=== PATIENT | female | born 1940 | race Caucasian/White ===

== ENCOUNTER 2018-05-27 07:24 | Inpatient (IN) | payer OTHER ==
[~2018-05-27] VITALS: Ht 160 cm; Wt 52.6 kg
[2018-05-27] VITALS (10 sets, daily range): BP systolic 109–176; BP diastolic 49–81
[~2018-05-27 07:24] MED LIST: A & D15 GM TP; ADULT LOW STREN81 M3 PO; ANTIVERT25 MG PO; CARAFATE1 GM PO; COZAAR50 MG PO; DILAUDID2 MG PO; LISINOPRIL5 MG PO; LOSARTAN POTASS25 MG PO; LOW DOSE ASPIRI81 M1 PO; METOPROLOL SUCC25 MG PO; NORVASC10 MG PO; Norvasc PO; PREVACID15 MG PO; PREVACID30 MG PO; ST. JOSEPH ASPI81 M1 PO; TOPROL XL50 MG PO; TOPROL XL6.25 MG PO; TYLENOL REGULA325 MG PO
[2018-05-27 08:05] LABS: HEMATOCRIT 40.1 % (36.0-46.0); HEMOGLOBIN 13.5 G/DL (11.9-15.5); MCH 32.5 PG (29.0-34.0); MCHC 33.7 G/DL (30.0-36.0); MCV 96.6 FL (83-99); PLATELET COUNT 276 K/uL (156-360); RBC DIS.WIDTH-CV 12.8 % (11.8-14.6); RBC DIS.WIDTH-SD 45.9 % (39-53); RED BLOOD COUNT 4.15 M/uL (3.80-5.20); WHITE BLOOD COUNT 7.4 K/uL (4.1-10.2)
[2018-05-27 09:05] LABS: CHLORIDE 108 MEQ/L (99-109); POTASSIUM 3.8 MEQ/L (3.7-5.4); SODIUM 143 MEQ/L (136-147)
[2018-05-27 09:08] LABS: TROP-I INTERPRETATION INDETERMINATE; TROPONIN-I 0.58 ng/mL (0.0-0.30)
[2018-05-27 09:11] LABS: CREATININE 0.8 MG/DL (0.6-1.3); GFR ESTIMATE (CALCULATED) > 59 mL/min/; GLUCOSE 101 mg/dL (70-99); UREA NITROGEN (BUN) 25 mg/dL (9-23)
[2018-05-27 09:53] LABS: INTER. NORMALIZED RATIO 0.9
[2018-05-27 09:55] LABS: PTT 29.7 SEC (25-37)
[2018-05-27] MEDS ORDERED: TYLENOL EXTRA500 MG PO (10:00)
[2018-05-27] MEDS ORDERED: NITROGLYCERIN0.4 MG SL (10:57)
[2018-05-27 17:33] LABS: TROP-I INTERPRETATION POSITIVE
[2018-05-27 17:36] LABS: TROPONIN-I 1.41 ng/mL (0.0-0.30)
[2018-05-28] VITALS (22 sets, daily range): BP systolic 80–168; BP diastolic 49–107
[2018-05-28 02:10] LABS: HEMATOCRIT 35.4 % (36.0-46.0); HEMOGLOBIN 12.1 G/DL (11.9-15.5); MCH 32.6 PG (29.0-34.0); MCHC 34.2 G/DL (30.0-36.0); MCV 95.4 FL (83-99); PLATELET COUNT 233 K/uL (156-360); RBC DIS.WIDTH-CV 12.8 % (11.8-14.6); RBC DIS.WIDTH-SD 45.1 % (39-53); RED BLOOD COUNT 3.71 M/uL (3.80-5.20); WHITE BLOOD COUNT 9.5 K/uL (4.1-10.2)
[2018-05-28 02:45] LABS: CHLORIDE 111 mEq/L (99-109); POTASSIUM 3.6 mEq/L (3.7-5.4); SODIUM 143 mEq/L (136-147); TROP-I INTERPRETATION POSITIVE
[2018-05-28 02:46] LABS: GLUCOSE 116 mg/dL (70-99)
[2018-05-28 02:50] LABS: CREATININE 0.7 mg/dL (0.6-1.3); GFR ESTIMATE (CALCULATED) > 59 mL/min/
[2018-05-28 02:51] LABS: UREA NITROGEN (BUN) 18 mg/dL (9-23)
[2018-05-28 02:53] LABS: TROPONIN-I 2.38 ng/mL (0.0-0.30)
[2018-05-28 08:56] LABS: TROP-I INTERPRETATION POSITIVE
[2018-05-28 09:11] LABS: TROPONIN-I 2.08 ng/mL (0.0-0.30)
[2018-05-28 12:21] LABS: CHLORIDE 110 mEq/L (99-109); POTASSIUM 4.1 mEq/L (3.7-5.4); SODIUM 144 mEq/L (136-147)
[2018-05-28 12:22] LABS: GLUCOSE 98 mg/dL (70-99)
[2018-05-28 12:26] LABS: CREATININE 0.8 mg/dL (0.6-1.3); GFR ESTIMATE (CALCULATED) > 59 mL/min/
[2018-05-28 12:27] LABS: UREA NITROGEN (BUN) 16 mg/dL (9-23)
[2018-05-28 17:32] LABS: CHLORIDE 109 MEQ/L (99-109); CREATININE 0.8 MG/DL (0.6-1.3); GFR ESTIMATE (CALCULATED) > 59 mL/min/; GLUCOSE 105 mg/dL (70-99); POTASSIUM 4.3 MEQ/L (3.7-5.4); SODIUM 142 MEQ/L (136-147); UREA NITROGEN (BUN) 15 mg/dL (9-23)
[2018-05-29] VITALS (12 sets, daily range): BP systolic 92–164; BP diastolic 51–87
[2018-05-29 06:56] LABS: HEMATOCRIT 35.6 % (36.0-46.0); HEMOGLOBIN 12.2 G/DL (11.9-15.5); MCH 33.2 PG (29.0-34.0); MCHC 34.3 G/DL (30.0-36.0); RBC DIS.WIDTH-CV 13.1 % (11.8-14.6); RBC DIS.WIDTH-SD 46.6 % (39-53); RED BLOOD COUNT 3.67 M/uL (3.80-5.20); WHITE BLOOD COUNT 6.5 K/uL (4.1-10.2)
[2018-05-29 07:15] LABS: CHLORIDE 108 MEQ/L (99-109); CREATININE 0.8 MG/DL (0.6-1.3); GFR ESTIMATE (CALCULATED) > 59 mL/min/; GLUCOSE 96 mg/dL (70-99); POTASSIUM 4.1 MEQ/L (3.7-5.4); SODIUM 142 MEQ/L (136-147); UREA NITROGEN (BUN) 12 mg/dL (9-23)
[2018-05-29 07:30] LABS: PLAT.SUFFICIENCY ADEQUATE; PLATELET COUNT 234 K/uL (156-360)
== END 2018-05-29 13:19 | disposition short-term general hospital (02) | DRG 281 ==
LOC: EME 07:24 → CATH 11:03 → 2SOUTH 12:00 → 4WEST 12:00 → ENRESERV 12:38 → 4WEST 12:45 → ENRESERV 12:52 → 2SOUTH 13:11 → 4WEST 05-29 13:19
PROVIDERS: Emergency Medicine; Internal Medicine Pulmonary Disease
DX: I21.4 Non-ST elevation (NSTEMI) myocardial infarction (principal); I25.810 Atherosclerosis of coronary artery bypass graft(s) without angina pectoris; I70.8 Atherosclerosis of other arteries; E78.5 Hyperlipidemia, unspecified; M79.7 Fibromyalgia; F41.9 Anxiety disorder, unspecified; I10 Essential (primary) hypertension; F32.9 Major depressive disorder, single episode, unspecified; E87.6 Hypokalemia; R55 Syncope and collapse; K21.9 Gastro-esophageal reflux disease without esophagitis; Z95.5 Presence of coronary angioplasty implant and graft; Z90.710 Acquired absence of both cervix and uterus; I25.2 Old myocardial infarction; Z88.6 Allergy status to analgesic agent; Z95.1 Presence of aortocoronary bypass graft; Z85.820 Personal history of malignant melanoma of skin
CPT/HCPCS: 71275; 80048; 80048 91; 81003; 84484; 85027; 85347; 85610; 85730; 87641; 93005; 99281; 99285; C1769; C1887; C1894; J0461; J1644; J2250; J2270; J2405; J3010; J3480; J7040

== ENCOUNTER 2018-06-04 02:04 | Observation (INO) | payer OTHER ==
[~2018-06-04] VITALS: Ht 160 cm; Wt 48.5 kg
[~2018-06-04 02:04] MED LIST changes: +NITROGLYCERIN0.4 MG SL; +TYLENOL EXTRA500 MG PO
[2018-06-04 02:49] LABS: TROP-I INTERPRETATION INDETERMINATE; TROPONIN-I 0.37 ng/mL (0.0-0.30)
[2018-06-04 02:50] LABS: CHLORIDE 105 MEQ/L (99-109); GFR ESTIMATE (CALCULATED) 57 mL/min/; GLUCOSE 110 mg/dL (70-99); POTASSIUM 3.7 MEQ/L (3.7-5.4); SODIUM 140 MEQ/L (136-147)
[2018-06-04 02:53] LABS: UREA NITROGEN (BUN) 25 mg/dL (9-23)
[2018-06-04 03:32] LABS: HEMATOCRIT 35.1 % (36.0-46.0); MCH 33.1 PG (29.0-34.0); MCHC 34.2 G/DL (30.0-36.0); MCV 96.7 FL (83-99); RBC DIS.WIDTH-CV 12.8 % (11.8-14.6); RBC DIS.WIDTH-SD 45.7 % (39-53); RED BLOOD COUNT 3.63 M/uL (3.80-5.20); WHITE BLOOD COUNT 9.7 K/uL (4.1-10.2)
[2018-06-04 04:25] LABS: AMPHETAMINE NEGATIVE (500 ng/mL); BARBITURATES NEGATIVE (200 ng/mL); BENZODIAZEPINES NEGATIVE (150 ng/mL); BUPRENORPHINE NEGATIVE (10 ng/mL); COCAINE NEGATIVE (150 ng/mL); METHADONE NEGATIVE (200 ng/mL); METHAMPHETAMINE NEGATIVE (500 ng/mL); OPIATES (MORPHINE) PRESUMPTIVE POSITIVE (100 ng/mL); OXYCODONE NEGATIVE (100 ng/mL); PHENCYCLIDINE NEGATIVE (25 ng/mL); PROPOXYPHENE NEGATIVE (300 ng/mL); THC CANNABINOIDS NEGATIVE (50 ng/mL); TRICYCLIC ANTIDEPRESSANTS NEGATIVE (300 ng/mL)
[2018-06-04 04:48] LABS: APPEARANCE CLEAR ((CLEAR)); BILIRUBIN NEGATIVE; BLOOD NEGATIVE; COLOR STRAW ((YELLOW)); GLUCOSE (STRIP) NEGATIVE; KETONES NEGATIVE; LEUKOCYTES NEGATIVE; NITRITE NEGATIVE; PROTEIN (STRIP) NEGATIVE; SPECIFIC GRAVITY 1.011 (1.000-1.030); UCUL ADDED? NO; UROBILINOGEN 0.2 MG/DL (0.2-1.0)
[2018-06-04 06:15] VITALS: BP 191/84
[2018-06-04 06:17] LABS: PLATELET COUNT 284 K/uL (156-360)
[2018-06-04 07:33] LABS: TROP-I INTERPRETATION NEGATIVE; TROPONIN-I 0.28 ng/mL (0.0-0.30)
[2018-06-04 07:51] VITALS: BP 160/75
[2018-06-04] MEDS ORDERED: NITROSTAT0.4 MG SL (10:59)
[2018-06-04] MEDS ORDERED: BRILINTA90 MG PO (10:59)
[2018-06-04 12:08] VITALS: BP 133/83
[2018-06-04 12:35] LABS: TROP-I INTERPRETATION NEGATIVE; TROPONIN-I 0.19 ng/mL (0.0-0.30)
[2018-06-04] MEDS ORDERED: ASPIRIN81 M2 PO (14:33)
== END 2018-06-04 15:25 | disposition home or self-care (01) ==
LOC: EME 02:04 → EDOF 04:29 → 4SOUTH 06:01
PROVIDERS: Emergency Medicine; Hospitalist
DX: R20.2 Paresthesia of skin (principal); R53.83 Other fatigue; R42 Dizziness and giddiness; I25.10 Atherosclerotic heart disease of native coronary artery without angina pectoris; Z95.5 Presence of coronary angioplasty implant and graft; Z95.1 Presence of aortocoronary bypass graft; M79.7 Fibromyalgia; I10 Essential (primary) hypertension; E78.5 Hyperlipidemia, unspecified; I21.4 Non-ST elevation (NSTEMI) myocardial infarction; Z79.82 Long term (current) use of aspirin; Z79.02 Long term (current) use of antithrombotics/antiplatelets; Z85.820 Personal history of malignant melanoma of skin; Z85.828 Personal history of other malignant neoplasm of skin; Z90.710 Acquired absence of both cervix and uterus; Z90.79 Acquired absence of other genital organ(s); Z90.722 Acquired absence of ovaries, bilateral; Z88.0 Allergy status to penicillin; Z88.2 Allergy status to sulfonamides; Z88.1 Allergy status to other antibiotic agents; Z88.6 Allergy status to analgesic agent; Z88.8 Allergy status to other drugs, medicaments and biological substances; Z91.048 Other nonmedicinal substance allergy status
CPT/HCPCS: 70450; 71046; 80048; 81003; 84484; 84999; 85027; 93005; 99281; 99285; G0378; J1650